=== PATIENT | female | born 1965 | race Caucasian/White ===

== ENCOUNTER → 2019-05-31 12:00 | Outpatient (CLI) | payer BC, SELFPAY | PROVIDERS: Family Provider Nurse Practitioner; PCP Nurse Practitioner; Visit Provider Obstetrics & Gynecology | DX: N89.8 Other specified noninflammatory disorders of vagina (principal) | CPT/HCPCS: 87480; 87510; 87660 ==

== ENCOUNTER → 2022-03-23 16:14 | Outpatient (CLI) | payer BC, SELFPAY ==
--- NOTE | 2022-03-23 16:16 | DI.US.S_ITS ---
PROCEDURE: US PELVIC COMPLETE INDICATIONS: Excessive and frequent menstruation TECHNIQUE: Real-time scanning was performed of the pelvic organs, with image documentation. Additional endovaginal scanning was necessary due to incomplete visualization of the adnexal and endometrial structures by transabdominal scanning. COMPARISON: [facility], US, PELVIC COMPLETE, 07/28/2013, 13:39. FINDINGS: Uterus: Uterus is anteverted and normal in size at 7.5 x 6.4 x 4.8 cm. The myometrium is slightly heterogeneous. No dominant mass. There is a right fundal focal endometrial fluid collection measuring 0.9 x 1.4 x 0.9 cm, and a small irregular left fundal fluid collection measuring 0.8 x 0.8 x 0.4 cm. The endometrial complex architecture was not well seen. The distal portion of the endocervix is distended with simple fluid. There are punctate echogenic foci in the more proximal cervix. No suspicious vascularity in the uterus or cervix. Ovaries: The right ovary measures 2.9 x 2.1 x 2.0 cm, with a calculated ovarian volume of 6.3 cc. The left ovary was not seen. The right ovary contains a single follicle measuring up to 1.8 cm. No adnexal masses are seen. Other: No pathologic free abdominal or pelvic fluid. IMPRESSION: 1. Two separate fundal fluid collections within the uterus may be result of scarring from prior endometrial ablation. There is no suspicious vascular flow. 2. The endometrial stripe was not well seen, expected with a history of endometrial ablation. For further detail, MR imaging of the uterus may be helpful. 3. Heterogeneous myometrium is consistent with the patient history of adenomyosis. There are no other sonographic features such as uterine enlargement or lobulation. 4. Nonvisualized left ovary. We strive to produce accurate, complete, and clear reports of imaging services. To assist us in improving patient care, this report was composed using standard report templates and voice recognition software. Therefore, it may contain abnormal punctuation, insertions and/or omissions. Occasional wrong-word or sound-alike substitutions may occur. Though we review the report and make efforts to correct it, we do recommend that the report be read carefully in proper context to recognize any text inaccuracies. Dictated by: Maru Vallejo M.D. on 03/24/2022 at 11:40 Approved by: Maru Vallejo M.D. on 03/24/2022 at 11:47
== END ==
PROVIDERS: PCP Family Medicine; Referring Provider Family Medicine; Visit Provider Family Medicine
DX: N92.0 Excessive and frequent menstruation with regular cycle (principal)
CPT/HCPCS: 76830; 76856

== ENCOUNTER 2022-05-25 07:17 | Day surgery (SDC) | payer BC, SELFPAY ==
[2022-05-20 07:23] VITALS: BMI 35.6
[2022-05-25] VITALS (14 sets, daily range): BP systolic 94–122; BP diastolic 43–72; PULSE 57–89; RESP 12–20; TEMP 36.4–37.4; O2SAT 94–100; BMI 35.6
--- NOTE | 2022-05-25 | PATH_ITS ---
[facility] Accession Number: [id number] No. of containers..01 Tissue . 01 Material submitted: . uterus - UTERUS, FALLOPIAN TUBES AND OVARIES . 01 Diagnosis: Uterus, Fallopian Tube and Ovaries, Hysterectomy and Bilateral Salpingectomy and Oophorectomy: Superficial inactive endometrium. Extensive adenomyosis. Bilateral fallopian tubes with complete cross-section of the lumen identified, and with benign paratubal cyst. One ovary with hemorrhagic corpus luteum and hemorrhagic cystic follicle. See comment. MRV 06/01/2022 1042 Local . 01 Comment: The second ovary is not definitively identified, both on gross and microscopic examination. . 01 Electronically signed: . Nicki Odom MD, Pathologist NPI- [id number] . 01 Gross description: . The specimen is received in formalin labeled with the patient's name, , and uterus, fallopian tubes, and ovaries, and consists of a significantly disrupted uterus (85 grams, 7.7 x 4.8 x 4.2 cm) with attached unoriented fimbriated fallopian tube (3.3 x 0.6 cm), attached ovary (6 grams, 3.5 x 2.2 x 1.6 cm), attached nonfimbriated fallopian tube (4.9 x 0.5 cm), and attached possible ovary (2 grams, 3.3 x 1.7 x 1.0 cm; however, identification of the second ovary is approximate). No cervix is identified. The serosa is emlgar and slightly wrinkled with no adhesion or hemorrhage identified. The presumed endometrium is hemorrhagic and averages less than 0.1 cm thick. Sectioning reveals a hemorrhagic cavity possibly consistent with cornu measuring 2.3 x 1.1 x 0.6 cm. The myometrium is melgar and trabecular with no discrete nodules or lesions identified. The maximum thickness cannot be determined. . The fimbriated fallopian tube has congested smooth serosa with multiple cystic structures measuring up to 0.4 cm in greatest dimension filled with clear serous fluid. Sectioning reveals an unremarkable stellate lumen. The associated ovary has a melgar cerebriform external surface significant for a congested smooth possible cystic structure extending from the surface measuring 1.5 x 1.5 x 0.9 cm. The external surface is inked blue. Sectioning reveals the aforementioned possible cystic structure to have a melgar-brown hemorrhagic cut surface. The remaining ovary is physiologic and unremarkable. . The nonfimbriated fimbriated fallopian tube has melgar smooth serosa with multiple cystic structures measuring up to 0.3 cm in greatest dimension filled with clear serous fluid. Sectioning reveals an unremarkable stellate lumen. The possible associated ovary has a sooth congested surface and sectioning reveals melgar to congested soft tissue with no ovarian parenchyma grossly identified. Photographs taken. . Registered Nurse First Assistant sections are submitted as follows: A1: Presumed endometrium. A2-A3: Hemorrhagic cavity. A4: Serosa A5: Fimbriated fallopian tube to include one-half of fimbriae and cross sections. A6-A7: Ovary with hemorrhagic nodule. A8: Nonfimbriated fallopian tube cross sections. A9: Registered Nurse First Assistant possible second ovary. ([id number]) /MRV 05/26/2022 Replaced by [facility] Local . 01 Pathologist provided ICD-10: N80.00, N93.9, N99.85, N94.6 . 01 CPT . 395893 Specimen Comment: A courtesy copy of this report has been sent to [phone] Performed at: 01 [facility] [address] [place] [address], [place], [place] [id number] MD Eron Yao MD Phone: [phone]
[2022-05-25] MEDS: LACTATED RINGERS 1,000 ML 100 ML IV ×4 (07:44→23:59)
[2022-05-25 08:47] LABS: COVID19 -Nasal RAPID Negative (Negative)
--- NOTE | 2022-05-25 10:20 | PM.PREOP ---
Pre-operative Note COVID-19 COVID-19 status: Negative Result date/Date tested (Pos, Neg/Pending): 05/25/22 Criteria for continued procedure: Non-surgical alternatives not available or appropriate per current SOC Interval Note History & Physical reviewed/Exam performed by Physician: Yes Changes to H&P: No H&P completed within 30 days and has changed as indicated here:: 05/19/22
[2022-05-25] MEDS: VANCOMYCIN 1,000 MG/200 ML PIGGYBACK 200 MG IV (10:39)
[2022-05-25] MEDS: BUPIVACAINE 0.5% W/ EPI (PF) 30 ML VIAL INJ (11:14)
[2022-05-25] MEDS: ROPIVACAINE 0.2% PF 2 MG/ML 20ML AMP 20 ML INJ (11:15)
--- NOTE | 2022-05-25 11:21 | SUR.OPER ---
Lithotomy on padded OR bed. [place] Pad Positioner under torso. Head on pillow, arms padded and tucked at sides. Legs secured in padded yellow fins stirrups.
--- NOTE | 2022-05-25 12:01 | P.OP_ITS ---
Operative Date/Time/Diagnoses Date of procedure: 05/25/22 Time of procedure: 12:01 Pre-op diagnosis: Post ablation syndrome Severe dysmenorrhea History of endometriosis Post-op diagnosis: same Procedure & Clinicians Procedure: Procedures Operation Date: 05/25/22 09:15 Actual Procedure Side Surgeon p Laparoscopic Supracervical Hysterectomy w. bilateral salpingo-oophorectomy Sosa Arvizu MD Indications: Post ablation syndrome Severe dysmenorrhea History of endometriosis Surgeon: Sosa Arvizu Chain Sales Representative: Senait Marsh Anesthesia Type: General and Local Operative Notes Findings: 8 week size anteverted uterus Tubes status post ligation Bilateral ovarian cysts No evidence of endometriosis Normal liver Normal appendix Closure Type: primary Specimen(s): left tube & ovary, right tube & ovary and uterus Applied: catheter (Removed at the end of the case) Estimated blood loss (mL): 10 Blood products transfused: none Procedure in detail: The patient was taken to the operating room where she was placed in the dorsal supine position. After adequate general endotracheal anesthesia was achieved, she was placed in the dorsal lithotomy position, and prepped and draped in the usual sterile fashion. A timeout was performed. A bivalve speculum was placed into the vagina and the anterior lip of the cervix grasped with a single-tooth tenaculum. The cervical os was sequentially dilated until the ZUMI uterine manipulator could pass easily into the endometrial cavity. The single-tooth tenaculum was removed from the anterior lip of the cervix, and the bivalve speculum was removed from the vagina. Attention was then turned to the abdomen where 6 mL of half percent Marcaine with epinephrine were injected just above the umbilicus. A 5 mm incision was made. The long veress needle was placed into the peritoneal cavity, and its placement confirmed by aspiration and drop test. The veress needle was removed. A long 5 mm trocar was placed without difficulty. 2 other incisions were made 4 cm lateral to the umbilicus after 5 mL of half percent Marcaine with epinephrine were injected. These were 5 mm incisions. Two, 5 mm trocars were placed under direct visualization. The right tube and ovary were grasped with an atraumatic grasper. Using the Powerseal, the infundibulopelvic ligament was cauterized and cut. The cornua of the uterus was then grasped with an atraumatic grasper. The round ligament and broad ligament were cauterized and cut with the Powerseal. Hemostasis was achieved. The bladder flap was created using the Powerseal with cautery and cut intermediate across. The uterine arteries on the right side were extensively cauterized with the Powerseal. All of this was repeated on the left side. The remainder of the bladder flap was created using the Powerseal, and the bladder taken down off the lower uterine segment and cervix. Using the L[place]oop, the cervix was amputated from the uterus 2 cm above the uterosacral ligaments, after the ZUMI uterine manipulator was removed from the uterus and a moistened sponge stick was placed in the vagina. There was a small amount of bleeding noted from the posterior edge of the cervix, and this was cauterized for hemostasis. The endocervix was extensively cauterized with the spatula. 6 mL of half percent Marcaine with epinephrine were injected above the pubic symphysis. A 12mm incision was made. A 12 mm trocar was placed under direct visualization. The large Endobag was placed through the suprapubic trocar and the uterus, tubes, and ovaries were placed into the Endobag. The edges of the bag were brought up through the skin. The uterus was grasped with a Jacquelyn. An Lon was placed into the endobag. The uterus, tubes, and ovaries were morcellated in one piece. The Endobag with the Lon were removed from the peritoneal cavity. The abdomen was re-insufflated. Observation with the laparoscoped showed no bleeding. 20 mL of 0.2% ropivacaine were placed over the pelvic pedicles. The instruments were removed from the abdomen. The CO2 was allowed to escape. The suprapubic incision was closed on the fascia with 0 Vicryl. Two simple interrupted sutures with 3-0 Vicryl were placed in the suprapubic incision to reapproximate the subcutaneous layer. All of the incisions were closed with 4-0 Biosyn in a subcuticular fashion. Steri strips, 2x2's and Allevyn dressings were placed over the incisions. The moistened sponge stick was removed from the vagina. Sponge, lap, and instrument counts were correct x 2. The patient tolerated the procedure well, was taken to PACU in stable condition. Complications: none Post-operative Condition: stable Disposition: PACU Plan for aftercare: To acute care after recovery
[2022-05-25] MEDS: ACETAMINOPHEN 325 MG TABLET 650 MG PO (13:07)
[2022-05-25] MEDS: OXYCODONE IR 5 MG TABLET PO (13:08)
--- NOTE | 2022-05-25 13:27 | SUR.PHASEI ---
to 225 with all belongings.
--- NOTE | 2022-05-25 13:48 | PC.NURSE ---
Addendum entered by Diane Estrada R.N. 05/25/22 18:58: Patient is resting comfortably. She will be do for some toradol in an hour. Addendum entered by Diane Estrada R.N. 05/25/22 14:32: When admission questions about suicide asked. 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 She has not thoughts, plans, to hurt herself now or within the past 36 years. Original Note: Assess- Patient is alert and oriented x4. She has 4 small bandaide dressings with allevyn in place, o drainage noted. Patient states that she has some gas and towards her r.shoulder. She was given oxycodone in pacu and this was helpful. Patient is visiting with her now.
[2022-05-25] MEDS: KETOROLAC 30 MG/ML VIAL IV ×3 (14:15→23:58)
[2022-05-25] MEDS: DOCUSATE 100 MG CAPSULE 200 MG PO (20:10)
[2022-05-26] VITALS: BP 98/47; PULSE 77; RESP 14; TEMP 36.9; O2SAT 98
[2022-05-26] MEDS: CALCIUM CARBONATE 500 MG TAB 1000 MG PO ×2 (00:12→02:14)
[2022-05-26 04:00] VITALS: BP 100/53; PULSE 72; RESP 19; TEMP 37.4; O2SAT 97
[2022-05-26 05:13] LABS: Hematocrit 35.7 % (36-46); Hemoglobin 11.9 g/dL (12.0-16.0)
[2022-05-26] MEDS: KETOROLAC 30 MG/ML VIAL IV (06:41)
[2022-05-26] MEDS: PANTOPRAZOLE DR 40 MG TABLET PO (06:41)
--- NOTE | 2022-05-26 10:45 | PC.NURSE ---
Pt A&O, follows commands offers no overt c/o concerned about d/c andf catching 10:[address] Arvizu here, d/c orders written, instructions given and understood by Pt. 09:35 Pt escorted to the car and care of .
== END 2022-05-26 09:35 | disposition home or self-care (01) ==
LOC: OR 07:24 → AC 07:26
PROVIDERS: PCP Family Medicine; Referring Provider Obstetrics & Gynecology; Visit Provider Obstetrics & Gynecology
PROC: 0UT94ZL Resection of Uterus, Supracervical, Percutaneous Endoscopic Approach (ICD-10-PCS; CPT 58542; principal; 2022-05-25 09:15)
DX: N99.85 Post endometrial ablation syndrome (principal); N94.6 Dysmenorrhea, unspecified; Z20.822 Contact with and (suspected) exposure to COVID-19; N83.8 Other noninflammatory disorders of ovary, fallopian tube and broad ligament; N83.10 Corpus luteum cyst of ovary, unspecified side; N80.03 Adenomyosis of the uterus
CPT/HCPCS: 58542; 36415; 85014; 85018; 87635; C9803; J1100; J1885; J2250; J2405; J2704; J2795; J3010